=== PATIENT | female | born 1960 | race Caucasian/White ===

== ENCOUNTER 2020-11-21 10:32 | Emergency (ER) | payer BC ==
--- NOTE | 2020-11-21 10:50 | CT ---
PROCEDURE INFORMATION: Exam: CT Head Without Contrast Exam date and time: 11/21/2020 10:38 AM Age: 60 years old Clinical indication: Altered mental status/memory loss; Confusion or disorientation; Patient HX: HX stroke; Additional info: Altered mentation TECHNIQUE: Imaging protocol: Computed tomography of the head without contrast. Radiation optimization: All CT scans at this facility use at least one of these dose optimization techniques: automated exposure control; mA and/or kV adjustment per patient size (includes targeted exams where dose is matched to clinical indication); or iterative reconstruction. Other technique: STROKE PROTOCOL was implemented. COMPARISON: No relevant prior studies available. FINDINGS: Brain: There is a focal area of decreased attenuation within the right frontal lobe compatible with prior anterior cerebral artery infarct. Areas somewhat difficult to measure due to its shape as on the order of 7.0 x 2.6 x 5.3 cm in anterior-posterior, right to left and craniocaudal dimensions respectively. No acute infarct identified. There is no intracranial mass, mass effect, midline shift or edema. There are no abnormal extra-axial fluid collections. Cerebral ventricles: No ventriculomegaly. Paranasal sinuses: Visualized sinuses are unremarkable. No fluid levels. Mastoid air cells: Visualized mastoid air cells are well aerated. Bones/joints: Unremarkable. No acute fracture. Soft tissues: Unremarkable. IMPRESSION: 1. 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 No acute infarct or hemorrhage identified. ASSESSMENT: ASPECTS ([facility] Stroke Program Early CT Score) is 10.
[2020-11-21] MEDS ORDERED: DOPamine/Dextrose 5%-Water 400 MG/250 ML BAG IV SCH (10:55)
[2020-11-21] MEDS ORDERED: DOPAMINE ONE (10:55)
[2020-11-21] MEDS ORDERED: Atropine 0.1 MG/ML 10 ML Syringe IVPUSH ONE (10:55)
[2020-11-21] MEDS ORDERED: Atropine 0.4 MG/ML SDV IVPUSH ONE (10:55)
[2020-11-21] MEDS ORDERED: EPINEPHrine 1:10,000 1 MG/10 ML Syringe IV ONE (10:58)
[2020-11-21] MEDS ORDERED: Atropine 0.1 MG/ML 10 ML Syringe IV ONE (10:58)
[2020-11-21] MEDS ORDERED: EPINEPHrine 1 MG/ML SDV IV ONE (10:58)
[2020-11-21] MEDS ORDERED: Sodium Chloride 0.9% 1,000 ML IV ONE (11:02)
[2020-11-21] MEDS ORDERED: Rocuronium 100 MG/10 ML MDV IV ONE (11:12)
[2020-11-21 11:13] LABS: ANION GAP 22.6 mEq/L (7-13); CHLORIDE,CL 98 mmol/L (98-107); SODIUM,NA 134 mmol/L (136-145)
[2020-11-21 11:17] LABS: ACETAMINOPHEN 0 ug/mL (10-30 (Therapeutic))
[2020-11-21] MEDS ORDERED: EPINEPHrine 1 MG in Sodium Chloride 0.9% 100 ML IV ONE (11:17)
[2020-11-21 11:19] LABS: CORONAVIRUS COVID-19 NAA NEGATIVE (NEGATIVE)
[2020-11-21] MEDS ORDERED: Glucagon,Human Recombinant 1 MG Vial ONE (11:24)
[2020-11-21] MEDS ORDERED: Sodium Bicarbonate 8.4% 50 MEQ/50 ML Syringe IV ONE (11:24)
[2020-11-21 11:27] LABS: AMPHETAMINES,URINE NEGATIVE (NEGATIVE); BARBITURATES,URINE NEGATIVE (NEGATIVE); BENZODIAZEPINE,URINE NEGATIVE (NEGATIVE); MDMA (ECSTASY), URINE NEGATIVE (NEGATIVE); METHADONE,URINE NEGATIVE (NEGATIVE); METHAMPHETAMINES,URINE NEGATIVE (NEGATIVE); OPIATES,URINE NEGATIVE (NEGATIVE); OXYCODONE,URINE NEGATIVE (NEGATIVE); PHENCYCLIDINE,URINE NEGATIVE (NEGATIVE); TCA,URINE NEGATIVE (NEGATIVE)
[2020-11-21] MEDS ORDERED: Glucagon,Human Recombinant 1 MG Vial IV ONE (11:27)
[2020-11-21] MEDS ORDERED: EPINEPHrine 1 MG/ML SDV ONE (11:34)
[2020-11-21] MEDS ORDERED: EPINEPHrine 1:10,000 1 MG/10 ML Syringe ONE (11:35)
[2020-11-21] MEDS ORDERED: Etomidate 2 MG/ML 20 ML SDV IVPUSH ONE (11:42)
[2020-11-21] MEDS ORDERED: Phenylephrine 1% 10 MG/ML SDV IV ONE (11:52)
--- NOTE | 2020-11-21 12:10 | CR ---
PROCEDURE INFORMATION: Exam: XR Chest Exam date and time: 11/21/2020 11:36 AM Age: 60 years old Clinical indication: Device placement; Ett placement (vent status); Additional info: Cardiac arrest TECHNIQUE: Imaging protocol: XR of the chest. Views: 1 view. COMPARISON: No relevant prior studies available. FINDINGS: Tubes, catheters and devices: Endotracheal tube is present. Distal tip overlies the trachea approximately 7 cm above the reed. Nasogastric tube is present. Distal tip traverses the thorax and is beyond the gastroesophageal junction. Lungs: There is multifocal airspace opacity most pronounced within the right mid and upper lung zones. Finding is nonspecific and could be due to asymmetric edema. Atypical infection also possible. Pleural spaces: Unremarkable. No pleural effusion. No pneumothorax. Heart/Mediastinum: Heart size is within the range of normal. Bones/joints: Unremarkable. IMPRESSION: 1. Endotracheal tube and nasogastric tube placed as above. 2. Patchy airspace density within the lungs. The findings could represent asymmetric pulmonary edema with atypical/viral pneumonia also possible. Correlate with COVID-19 status.
--- NOTE | 2020-11-21 12:34 | EDM.PDOC ---
ED HPI GENERAL MEDICAL PROBLEM - General Chief Complaint: Cardiovascular Problem Time Seen by Provider: 11/21/20 10:32 Source of Information: Reports: Patient, EMS, Family History Limitations: Reports: Other - History of Present Illness INITIAL COMMENTS - FREE TEXT/NARRATIVE: This 60 yo female patient was brought to the ED by [facility] due to increased tiredness and weakness. EMS reports the family stated the patient has been doing well, was at the [facility] all day yesterday feeling normal, this morning was feeling and acting normally up to about 20 minutes prior to calling EMS. The family reports the patient suddenly got very fatigued and started to fall down. The family reports they caught the patient prior to her falling to the ground. EMS reported the patient's blood pressure was difficult to assess, but her pulse had remained in the 40's to 50's. Upon arrival in the ED, the patient appeared to be extremely tired, but would awaken to strong verbal stimuli. The patient reported she was just "very tired". The patient's family reported that the patient had had a stroke earlier this year (April) and has been "recovering" from her stroke. The family reports she has had some left sided weakness and muscle spasms. The patient's family reports the patient had similar symptoms when she had her previous stroke. Onset: Today, Sudden Duration: Constant Location: Reports: Generalized Quality: Reports: Other Severity: Severe Improves with: Reports: None Worsens with: Reports: None Context: Reports: Other Associated Symptoms: Reports: Malaise, Weakness - Related Data Allergies Allergy/AdvReac Type Severity Reaction Status Date / Time seafood Allergy Hives Uncoded 07/16/20 21:36 Home Meds: Home Meds Multivitamin [Daily Multiple Vitamin] 1 tab PO DAILY 07/18/18 [History] Pantoprazole Sodium [Protonix] 40 mg PO DAILY 04/26/20 [History] Aspirin [Aspirin EC] 81 mg PO DAILY 07/16/20 [History] Clopidogrel Bisulfate [Plavix] 75 mg PO DAILY 07/16/20 [History] Escitalopram [Lexapro] 10 mg PO DAILY 07/16/20 [History] Gabapentin [Neurontin] 200 mg PO BID 07/16/20 [History] Melatonin 3 mg PO DAILY 07/16/20 [History] Potassium Chloride 20 meq PO DAILY 07/16/20 [History] Verapamil [Calan] 80 mg PO TID 07/16/20 [History] atorvaSTATin [Lipitor] 40 mg PO DAILY 07/16/20 [History] carvediloL [Carvedilol] 12.5 mg PO BID 07/16/20 [History] metFORMIN HCl [Metformin HCl] 1,000 mg PO BID 07/16/20 [History] Past Medical History Cardiovascular History: Reports: High Cholesterol, Hypertension Neurological History: Reports: CVA Psychiatric History: Reports: Depression Endocrine/Metabolic History: Reports: Diabetes, Type II, Obesity/BMI 30+ - Past Surgical History GI Surgical History: Reports: Cholecystectomy, Other (See Below) Other GI Surgeries/Procedures: fluid filled cyst in abd Female Surgical History: Reports: Hysterectomy Endocrine Surgical History: Reports: Other (See Below) Other Endocrine Surgeries/Procedures: cyst on adrenal gland Social & Family History - Family History Family Medical History: No Pertinent Family History ED ROS GENERAL - Review of Systems Review Of Systems: Comprehensive ROS is negative, except as noted in HPI. ED EXAM, GENERAL - Physical Exam Exam: See Below Exam Limited By: Other (This patient was extremely tired during the visit. The patient could be waken up with strong verbal stemuli.) General Appearance: Lethargic, Severe Distress, Obese Eye Exam: Bilateral Eye: EOMI, PERRL (4mm sluggish) Ears: Normal External Exam, Normal Canal Nose: Normal Inspection, Normal Mucosa, No Blood Throat/Mouth: Normal Inspection, Normal Lips, Normal Teeth, Normal Gums, Normal Oropharynx, Normal Voice, No Airway Compromise Head: Atraumatic, Normocephalic Neck: Normal Inspection, Supple, Non-Tender Respiratory/Chest: Decreased Breath Sounds (but decreased effort) Cardiovascular: Bradycardia (Junctional rhythem initially at a rate of 40) GI/Abdominal: No Organomegaly, No Distention, No Abnormal Bruit, No Mass, Pelvis Stable, Abnormal Bowel Sounds (Female) Exam: Deferred Rectal (Female) Exam: Deferred Neurological: Disoriented, Slow to Respond Skin Exam: Warm, Dry, Intact, Normal Color, No Rash Lymphatic: No Adenopathy Course - Orders/Labs/Meds Labs: Laboratory Tests 11/21/20 11/21/20 11/21/20 Range/Units 10:30 10:30 10:32 WBC 13.2 H (5.0-10.0) 10^3/uL RBC 4.32 (4.2-5.4) 10^6/uL Hgb 10.9 L (12.0-16.0) g/dL Hct 36.0 L (37.0-47.0) % MCV 83.3 (80-100) fL MCH 25.2 L (27.0-34.0) pg MCHC 30.3 L (33.0-35.0) g/dL Plt Count 329 (150-450) 10^3/uL Neut % (Auto) 73.6 (42.2-75.2) % Lymph % (Auto) 17.6 L (20.5-50.1) % [place] % (Auto) 6.3 (2-8) % Eos % (Auto) 2.1 (1.0-3.0) % Baso % (Auto) 0.4 (0.0-1.0) % D-Dimer, Quantitative (0-400) ng/mL VBG pH (7.31-7.41) Sodium (136-145) mmol/L Potassium (3.5-5.1) mmol/L Chloride (98-107) mmol/L Carbon Dioxide (21-32) mmol/L Anion Gap (7-13) mEq/L BUN (7-18) mg/dL Creatinine (0.55-1.02) mg/dL Est Cr Clr Drug Dosing Estimated GFR (MDRD) BUN/Creatinine Ratio (No establ ref range) Glucose (70-99) mg/dL POC Glucose 456 H* (70-99) mg/dL Lactic Acid (0.4-2.0) mmol/L Calcium (8.5-10.1) mg/dL Magnesium (1.8-2.4) mg/dL Total Bilirubin (0.2-1.0) mg/dL AST (15-37) U/L ALT (14-59) U/L Alkaline Phosphatase (46-116) U/L Ammonia (11-32) umol/L Troponin I High Sens (<=51) pg/mL Total Protein (6.4-8.2) g/dL Albumin (3.4-5.0) g/dL Globulin Albumin/Globulin Ratio Amylase (25-115) U/L Lipase (73-393) U/L Urine Color (YELLOW) Urine Appearance (CLEAR) Urine pH (5.0-9.0) Ur Specific [place] (1.005-1.030) Urine Protein (NEGATIVE) Urine Glucose (UA) (NEGATIVE) Urine Ketones (NEGATIVE) Urine Occult Blood (NEGATIVE) Urine Nitrite (NEGATIVE) Urine Bilirubin (NEGATIVE) Urine Urobilinogen (0.2-1.0) mg/dL Ur Leukocyte Esterase (NEGATIVE) Urine RBC (0-5) /HPF Urine WBC (0-5/HPF) /HPF Ur Epithelial Cells (NOT SEEN) /HPF Urine Bacteria (0-FEW/HPF) /HPF Salicylates (2.8-20(Therapeutic)) mg/dL Urine Opiates Screen (NEGATIVE) Ur Oxycodone Screen (NEGATIVE) Urine Methadone Screen (NEGATIVE) Acetaminophen (10-30 (Therapeutic)) ug/mL Ur Barbiturates Screen (NEGATIVE) U Tricyclic Antidepress (NEGATIVE) Ur Phencyclidine Scrn (NEGATIVE) Ur Amphetamine Screen (NEGATIVE) U Methamphetamines Scrn (NEGATIVE) Urine MDMA Screen (NEGATIVE) U Benzodiazepines Scrn (NEGATIVE) Urine Cocaine Screen (NEGATIVE) U Marijuana (THC) Screen (NEGATIVE) Ethyl Alcohol (0) mg/dL Influenza Type A RNA Negative (NEGATIVE) Influenza Type B RNA Negative (NEGATIVE) SARS-CoV-2 RNA (CHAR) Negative (NEGATIVE) 11/21/20 11/21/20 11/21/20 Range/Units 10:32 10:32 10:32 WBC (5.0-10.0) 10^3/uL RBC (4.2-5.4) 10^6/uL Hgb (12.0-16.0) g/dL Hct (37.0-47.0) % MCV (80-100) fL MCH (27.0-34.0) pg MCHC (33.0-35.0) g/dL Plt Count (150-450) 10^3/uL Neut % (Auto) (42.2-75.2) % Lymph % (Auto) (20.5-50.1) % [place] % (Auto) (2-8) % Eos % (Auto) (1.0-3.0) % Baso % (Auto) (0.0-1.0) % D-Dimer, Quantitative (0-400) ng/mL VBG pH (7.31-7.41) Sodium 134 L (136-145) mmol/L Potassium 5.6 H (3.5-5.1) mmol/L Chloride 98 (98-107) mmol/L Carbon Dioxide 19 L (21-32) mmol/L Anion Gap 22.6 H (7-13) mEq/L BUN 12 (7-18) mg/dL Creatinine 1.11 H (0.55-1.02) mg/dL Est Cr Clr Drug Dosing TNP Estimated GFR (MDRD) 50 BUN/Creatinine Ratio 10.8 (No establ ref range) Glucose 494 H* (70-99) mg/dL POC Glucose (70-99) mg/dL Lactic Acid 8.3 H* (0.4-2.0) mmol/L Calcium 8.1 L (8.5-10.1) mg/dL Magnesium 1.6 L (1.8-2.4) mg/dL Total Bilirubin 0.8 (0.2-1.0) mg/dL AST 28 (15-37) U/L ALT 42 (14-59) U/L Alkaline Phosphatase 104 (46-116) U/L Ammonia 40 H (11-32) umol/L Troponin I High Sens (<=51) pg/mL Total Protein 5.8 L (6.4-8.2) g/dL Albumin 2.9 L (3.4-5.0) g/dL Globulin 2.9 Albumin/Globulin Ratio 1.00 Amylase 35 (25-115) U/L Lipase 178 (73-393) U/L Urine Color (YELLOW) Urine Appearance (CLEAR) Urine pH (5.0-9.0) Ur Specific [place] (1.005-1.030) Urine Protein (NEGATIVE) Urine Glucose (UA) (NEGATIVE) Urine Ketones (NEGATIVE) Urine Occult Blood (NEGATIVE) Urine Nitrite (NEGATIVE) Urine Bilirubin (NEGATIVE) Urine Urobilinogen (0.2-1.0) mg/dL Ur Leukocyte Esterase (NEGATIVE) Urine RBC (0-5) /HPF Urine WBC (0-5/HPF) /HPF Ur Epithelial Cells (NOT SEEN) /HPF Urine Bacteria (0-FEW/HPF) /HPF Salicylates (2.8-20(Therapeutic)) mg/dL Urine Opiates Screen (NEGATIVE) Ur Oxycodone Screen (NEGATIVE) Urine Methadone Screen (NEGATIVE) Acetaminophen 0 L (10-30 (Therapeutic)) ug/mL Ur Barbiturates Screen (NEGATIVE) U Tricyclic Antidepress (NEGATIVE) Ur Phencyclidine Scrn (NEGATIVE) Ur Amphetamine Screen (NEGATIVE) U Methamphetamines Scrn (NEGATIVE) Urine MDMA Screen (NEGATIVE) U Benzodiazepines Scrn (NEGATIVE) Urine Cocaine Screen (NEGATIVE) U Marijuana (THC) Screen (NEGATIVE) Ethyl Alcohol < 3 (0) mg/dL Influenza Type A RNA (NEGATIVE) Influenza Type B RNA (NEGATIVE) SARS-CoV-2 RNA (CHAR) (NEGATIVE) 11/21/20 11/21/20 11/21/20 Range/Units 10:32 10:32 10:32 WBC (5.0-10.0) 10^3/uL RBC (4.2-5.4) 10^6/uL Hgb (12.0-16.0) g/dL Hct (37.0-47.0) % MCV (80-100) fL MCH (27.0-34.0) pg MCHC (33.0-35.0) g/dL Plt Count (150-450) 10^3/uL Neut % (Auto) (42.2-75.2) % Lymph % (Auto) (20.5-50.1) % [place] % (Auto) (2-8) % Eos % (Auto) (1.0-3.0) % Baso % (Auto) (0.0-1.0) % D-Dimer, Quantitative 130 (0-400) ng/mL VBG pH (7.31-7.41) Sodium (136-145) mmol/L Potassium (3.5-5.1) mmol/L Chloride (98-107) mmol/L Carbon Dioxide (21-32) mmol/L Anion Gap (7-13) mEq/L BUN (7-18) mg/dL Creatinine (0.55-1.02) mg/dL Est Cr Clr Drug Dosing Estimated GFR (MDRD) BUN/Creatinine Ratio (No establ ref range) Glucose (70-99) mg/dL POC Glucose (70-99) mg/dL Lactic Acid (0.4-2.0) mmol/L Calcium (8.5-10.1) mg/dL Magnesium (1.8-2.4) mg/dL Total Bilirubin (0.2-1.0) mg/dL AST (15-37) U/L ALT (14-59) U/L Alkaline Phosphatase (46-116) U/L Ammonia (11-32) umol/L Troponin I High Sens < 4 (<=51) pg/mL Total Protein (6.4-8.2) g/dL Albumin (3.4-5.0) g/dL Globulin Albumin/Globulin Ratio Amylase (25-115) U/L Lipase (73-393) U/L Urine Color (YELLOW) Urine Appearance (CLEAR) Urine pH (5.0-9.0) Ur Specific [place] (1.005-1.030) Urine Protein (NEGATIVE) Urine Glucose (UA) (NEGATIVE) Urine Ketones (NEGATIVE) Urine Occult Blood (NEGATIVE) Urine Nitrite (NEGATIVE) Urine Bilirubin (NEGATIVE) Urine Urobilinogen (0.2-1.0) mg/dL Ur Leukocyte Esterase (NEGATIVE) Urine RBC (0-5) /HPF Urine WBC (0-5/HPF) /HPF Ur Epithelial Cells (NOT SEEN) /HPF Urine Bacteria (0-FEW/HPF) /HPF Salicylates < 2.8 L (2.8-20(Therapeutic)) mg/dL Urine Opiates Screen (NEGATIVE) Ur Oxycodone Screen (NEGATIVE) Urine Methadone Screen (NEGATIVE) Acetaminophen (10-30 (Therapeutic)) ug/mL Ur Barbiturates Screen (NEGATIVE) U Tricyclic Antidepress (NEGATIVE) Ur Phencyclidine Scrn (NEGATIVE) Ur Amphetamine Screen (NEGATIVE) U Methamphetamines Scrn (NEGATIVE) Urine MDMA Screen (NEGATIVE) U Benzodiazepines Scrn (NEGATIVE) Urine Cocaine Screen (NEGATIVE) U Marijuana (THC) Screen (NEGATIVE) Ethyl Alcohol (0) mg/dL Influenza Type A RNA (NEGATIVE) Influenza Type B RNA (NEGATIVE) SARS-CoV-2 RNA (CHAR) (NEGATIVE) 11/21/20 11/21/20 11/21/20 Range/Units 11:09 11:09 13:30 WBC (5.0-10.0) 10^3/uL RBC (4.2-5.4) 10^6/uL Hgb (12.0-16.0) g/dL Hct (37.0-47.0) % MCV (80-100) fL MCH (27.0-34.0) pg MCHC (33.0-35.0) g/dL Plt Count (150-450) 10^3/uL Neut % (Auto) (42.2-75.2) % Lymph % (Auto) (20.5-50.1) % [place] % (Auto) (2-8) % Eos % (Auto) (1.0-3.0) % Baso % (Auto) (0.0-1.0) % D-Dimer, Quantitative (0-400) ng/mL VBG pH (7.31-7.41) Sodium (136-145) mmol/L Potassium (3.5-5.1) mmol/L Chloride (98-107) mmol/L Carbon Dioxide (21-32) mmol/L Anion Gap (7-13) mEq/L BUN (7-18) mg/dL Creatinine (0.55-1.02) mg/dL Est Cr Clr Drug Dosing Estimated GFR (MDRD) BUN/Creatinine Ratio (No establ ref range) Glucose (70-99) mg/dL POC Glucose (70-99) mg/dL Lactic Acid 9.7 H* (0.4-2.0) mmol/L Calcium (8.5-10.1) mg/dL Magnesium (1.8-2.4) mg/dL Total Bilirubin (0.2-1.0) mg/dL AST (15-37) U/L ALT (14-59) U/L Alkaline Phosphatase (46-116) U/L Ammonia (11-32) umol/L Troponin I High Sens (<=51) pg/mL Total Protein (6.4-8.2) g/dL Albumin (3.4-5.0) g/dL Globulin Albumin/Globulin Ratio Amylase (25-115) U/L Lipase (73-393) U/L Urine Color Yellow (YELLOW) Urine Appearance Cloudy (CLEAR) Urine pH 6.0 (5.0-9.0) Ur Specific [place] 1.015 (1.005-1.030) Urine Protein Negative (NEGATIVE) Urine Glucose (UA) Negative (NEGATIVE) Urine Ketones Negative (NEGATIVE) Urine Occult Blood Small H (NEGATIVE) Urine Nitrite Positive H (NEGATIVE) Urine Bilirubin Negative (NEGATIVE) Urine Urobilinogen 0.2 (0.2-1.0) mg/dL Ur Leukocyte Esterase Moderate H (NEGATIVE) Urine RBC 10-20 H (0-5) /HPF Urine WBC 50-75 H (0-5/HPF) /HPF Ur Epithelial Cells Few (NOT SEEN) /HPF Urine Bacteria Many H (0-FEW/HPF) /HPF Salicylates (2.8-20(Therapeutic)) mg/dL Urine Opiates Screen Negative (NEGATIVE) Ur Oxycodone Screen Negative (NEGATIVE) Urine Methadone Screen Negative (NEGATIVE) Acetaminophen (10-30 (Therapeutic)) ug/mL Ur Barbiturates Screen Negative (NEGATIVE) U Tricyclic Antidepress Negative (NEGATIVE) Ur Phencyclidine Scrn Negative (NEGATIVE) Ur Amphetamine Screen Negative (NEGATIVE) U Methamphetamines Scrn Negative (NEGATIVE) Urine MDMA Screen Negative (NEGATIVE) U Benzodiazepines Scrn Negative (NEGATIVE) Urine Cocaine Screen Negative (NEGATIVE) U Marijuana (THC) Screen Negative (NEGATIVE) Ethyl Alcohol (0) mg/dL Influenza Type A RNA (NEGATIVE) Influenza Type B RNA (NEGATIVE) SARS-CoV-2 RNA (CHAR) (NEGATIVE) 11/21/20 11/21/20 Range/Units 13:35 13:39 WBC (5.0-10.0) 10^3/uL RBC (4.2-5.4) 10^6/uL Hgb (12.0-16.0) g/dL Hct (37.0-47.0) % MCV (80-100) fL MCH (27.0-34.0) pg MCHC (33.0-35.0) g/dL Plt Count (150-450) 10^3/uL Neut % (Auto) (42.2-75.2) % Lymph % (Auto) (20.5-50.1) % [place] % (Auto) (2-8) % Eos % (Auto) (1.0-3.0) % Baso % (Auto) (0.0-1.0) % D-Dimer, Quantitative (0-400) ng/mL VBG pH 7.16 L* (7.31-7.41) Sodium (136-145) mmol/L Potassium 4.6 (3.5-5.1) mmol/L Chloride (98-107) mmol/L Carbon Dioxide (21-32) mmol/L Anion Gap (7-13) mEq/L BUN (7-18) mg/dL Creatinine (0.55-1.02) mg/dL Est Cr Clr Drug Dosing Estimated GFR (MDRD) BUN/Creatinine Ratio (No establ ref range) Glucose (70-99) mg/dL POC Glucose (70-99) mg/dL Lactic Acid (0.4-2.0) mmol/L Calcium (8.5-10.1) mg/dL Magnesium (1.8-2.4) mg/dL Total Bilirubin (0.2-1.0) mg/dL AST (15-37) U/L ALT (14-59) U/L Alkaline Phosphatase (46-116) U/L Ammonia (11-32) umol/L Troponin I High Sens (<=51) pg/mL Total Protein (6.4-8.2) g/dL Albumin (3.4-5.0) g/dL Globulin Albumin/Globulin Ratio Amylase (25-115) U/L Lipase (73-393) U/L Urine Color (YELLOW) Urine Appearance (CLEAR) Urine pH (5.0-9.0) Ur Specific [place] (1.005-1.030) Urine Protein (NEGATIVE) Urine Glucose (UA) (NEGATIVE) Urine Ketones (NEGATIVE) Urine Occult Blood (NEGATIVE) Urine Nitrite (NEGATIVE) Urine Bilirubin (NEGATIVE) Urine Urobilinogen (0.2-1.0) mg/dL Ur Leukocyte Esterase (NEGATIVE) Urine RBC (0-5) /HPF Urine WBC (0-5/HPF) /HPF Ur Epithelial Cells (NOT SEEN) /HPF Urine Bacteria (0-FEW/HPF) /HPF Salicylates (2.8-20(Therapeutic)) mg/dL Urine Opiates Screen (NEGATIVE) Ur Oxycodone Screen (NEGATIVE) Urine Methadone Screen (NEGATIVE) Acetaminophen (10-30 (Therapeutic)) ug/mL Ur Barbiturates Screen (NEGATIVE) U Tricyclic Antidepress (NEGATIVE) Ur Phencyclidine Scrn (NEGATIVE) Ur Amphetamine Screen (NEGATIVE) U Methamphetamines Scrn (NEGATIVE) Urine MDMA Screen (NEGATIVE) U Benzodiazepines Scrn (NEGATIVE) Urine Cocaine Screen (NEGATIVE) U Marijuana (THC) Screen (NEGATIVE) Ethyl Alcohol (0) mg/dL Influenza Type A RNA (NEGATIVE) Influenza Type B RNA (NEGATIVE) SARS-CoV-2 RNA (CHAR) (NEGATIVE) Meds: Medications Discontinued Medications Generic Name Dose Route Start Last Admin Trade Name Rajesh PRN Reason Stop Dose Admin Atropine Sulfate 0.5 mg 11/21/20 10:55 Atropine 0.4 Mg/Ml Sdv IVPUSH 11/21/20 10:56 ONETIME ONE Atropine Sulfate 0.5 mg 11/21/20 10:55 Atropine 0.1 Mg/Ml 10 Ml Syringe IVPUSH 11/21/20 10:56 ONETIME ONE Atropine Sulfate 1 mg 11/21/20 10:58 Atropine 0.1 Mg/Ml 10 Ml Syringe IV 11/21/20 10:59 .STK-MED ONE Dopamine HCl Confirm 11/21/20 10:55 11/21/20 10:58 Dopamine 200 Mg/5 Ml Sdv Administered 11/21/20 10:56 Not Given Dose 200 mg .ROUTE .STK-MED ONE Epinephrine HCl Confirm 11/21/20 11:34 11/21/20 14:43 Epinephrine 1 Mg/Ml Sdv Administered 11/21/20 11:35 Not Given Dose 4 mg .ROUTE .STK-MED ONE Epinephrine HCl Confirm 11/21/20 11:35 Epinephrine 1:10,000 1 Mg/10 Ml Syringe Administered 11/21/20 11:36 Dose 4 mg .ROUTE .STK-MED ONE Epinephrine HCl 1 mg 11/21/20 10:58 Epinephrine 1:10,000 1 Mg/10 Ml Syringe IV 11/21/20 10:59 .STK-MED ONE Epinephrine HCl 1 mg 11/21/20 10:58 Epinephrine 1 Mg/Ml Sdv IV 11/21/20 10:59 .STK-MED ONE Etomidate 20 mg 11/21/20 11:42 Etomidate 2 Mg/Ml 20 Ml Sdv IVPUSH 11/21/20 11:43 .STK-MED ONE Fentanyl Confirm 11/21/20 13:53 Fentanyl 100 Mcg/2 Ml Sdv Administered 11/21/20 13:54 Dose 100 mcg .ROUTE .STK-MED ONE Fentanyl 50 mcg 11/21/20 13:50 Fentanyl 100 Mcg/2 Ml Sdv IVPUSH 11/21/20 13:51 ONETIME ONE Glucagon Confirm 11/21/20 11:24 Glucagon,Human Recombinant 1 Mg Vial Administered 11/21/20 11:25 Dose 1 mg .ROUTE .STK-MED ONE Glucagon 3 mg 11/21/20 11:27 Glucagon,Human Recombinant 1 Mg Vial IV 11/21/20 11:28 .STK-MED ONE Dopamine HCl/Dextrose 400 mg in 250 mls @ 1 mls/hr 11/21/20 10:55 Dopamine In D5w 400 Mg/250 Ml IV ASDIRECTED CARLOS Protocol Epinephrine HCl 1 mg/ Sodium 101 mls @ as directed 11/21/20 11:17 Chloride IV 11/21/20 11:18 .STK-MED ONE Sodium Chloride 1,000 mls @ as directed 11/21/20 11:02 Normal Saline IV 11/21/20 11:03 .STK-MED ONE Dopamine HCl/Dextrose 400 mg in 250 mls @ as directed 11/21/20 12:50 Dopamine In D5w 400 Mg/250 Ml IV 11/21/20 12:51 .STK-MED ONE Lidocaine HCl Confirm 11/21/20 13:45 Lidocaine 1% 30 Ml Sdv Administered 11/21/20 13:46 Dose 30 ml .ROUTE .STK-MED ONE Phenylephrine HCl Confirm 11/21/20 12:57 Phenylephrine 1% 10 Mg/Ml Sdv Administered 11/21/20 12:58 Dose 10 mg .ROUTE .STK-MED ONE Phenylephrine HCl Confirm 11/21/20 14:29 Phenylephrine 1% 10 Mg/Ml Sdv Administered 11/21/20 14:30 Dose 10 mg .ROUTE .STK-MED ONE Phenylephrine HCl 0.1 mg 11/21/20 11:52 Phenylephrine 1% 10 Mg/Ml Sdv IV 11/21/20 11:53 .STK-MED ONE Rocuronium [place] 5 mg 11/21/20 11:12 Rocuronium 100 Mg/10 Ml Mdv IV 11/21/20 11:13 .STK-MED ONE Sodium Bicarbonate 100 meq 11/21/20 11:24 Sodium Bicarbonate 8.4% 50 Meq/50 Ml Syringe IV 11/21/20 11:25 .STK-MED ONE - Re-Assessments/Exams Free Text/Narrative Re-Assessment/Exam: 11/22/20 10:17 After the initial assessment, EKG and lab draw, the patient was transported to CT for a head CT. Upon return from CT, the patient was noted to have decreased respiratory effort and further decreased level of consciousness. These changes continued to progress to the point that her heart rate had dropped into the 30's. The patient was initially given Atropine (0.5 mg) with no changes. With no changes with the initial Atropine, the patient was given additional Atropine doses at 1 mg with no changes after medication administration and a Epinephrine drip was initiated. Additional resuscitation efforts were made with no significant changes to patient condition. The patient's family was consulted along with [facility] consulted. The patient agreed to stop efforts at that time. After one hour, the patient started to reach for the ET tube to pull the tube out. Efforts were begun again. [facility] was again consulted. [facility] did agree to accept the patient for continued evaluation and management. The family was advised of the patient's condition and advised that the patient may not make it to [place]. After the family came into the ED to visit the patient, the patient was moved to [facility] cot. At that time, the patient's pulse dropped initially to PEA then asystole. No further efforts were started at that time. Departure - Departure Time of Disposition: 14:35 Disposition: 20 Condition: Critical Clinical Impression: Cardiac arrest Referrals: PCP,None [Primary Care Provider] - Forms: ED Department Discharge
[2020-11-21] MEDS ORDERED: DOPamine/Dextrose 5%-Water 400 MG/250 ML BAG IV ONE (12:50)
[2020-11-21] MEDS ORDERED: Phenylephrine 1% 10 MG/ML SDV ONE ×2 (12:57→14:29)
[2020-11-21] MEDS ORDERED: Lidocaine 1% 30 ML SDV ONE (13:45)
[2020-11-21] MEDS ORDERED: fentaNYL 100 MCG/2 ML SDV IVPUSH ONE (13:50)
[2020-11-21] MEDS ORDERED: fentaNYL 100 MCG/2 ML SDV ONE (13:53)
== END 2020-11-21 17:01 | disposition expired ==
LOC: DL.ED 10:32
DX: I46.9 Cardiac arrest, cause unspecified (principal); R00.1 Bradycardia, unspecified; E78.00 Pure hypercholesterolemia, unspecified; I10 Essential (primary) hypertension; E11.9 Type 2 diabetes mellitus without complications; E66.9 Obesity, unspecified; Z68.30 Body mass index [BMI] 30.0-30.9, adult; Z86.73 Personal history of transient ischemic attack (TIA), and cerebral infarction without residual deficits; Z91.013 Allergy to seafood; Z20.822 Contact with and (suspected) exposure to COVID-19
CPT/HCPCS: 0240U; 31500; 36415; 70450; 71045; 80053; 80143; 80179; 80305; 80307; 81001; 82140; 82150; 82800; 82947; 83605; 83690; 83735; 84132; 84484; 85025; 85379; 87086; 87088; 87186; 92950; 93005; 99285; J0171; J0461; J1265; J1610; J2370; J3490; J7030